=== PATIENT | female | born 1990 | race Caucasian/White ===

== ENCOUNTER 2017-09-13 08:25 | Emergency (ER) | payer OTHER ==
[~2017-09-13] VITALS: Ht 162.6 cm; Wt 110.0 kg
[2017-09-13 08:31] VITALS: BP 108/64
[2017-09-13] MEDS ORDERED: MAALOX/HYOSCYAMINE/LIDOCAINE 45 ML BTL ONE (09:24)
[2017-09-13] MEDS ORDERED: FLUO10CA7 PO (09:27)
[2017-09-13] MEDS ORDERED: MAALOX/HYOSCYAMINE/LIDOCAINE 45 ML BTL PO ONE (09:30)
[2017-09-13 09:38] LABS: BASOPHILS # (AUTO) 0.05 x10^3/uL (0-0.1); BASOPHILS % (AUTO) 1 % (0-1); EOSINOPHILS % (AUTO) 3 % (1-7); LYMPHOCYTES # (AUTO) 2.04 x10^3/uL (1-3.4); LYMPHOCYTES % (AUTO) 27 % (22-44); MD NO; MEAN CORPUSCULAR HEMOGLOBIN 29.9 pg (27.0-34.8); MEAN CORPUSCULAR HGB CONC 34.1 g/dL (32.4-35.8); MEAN CORPUSCULAR VOLUME 87.7 fL (80-100); MEAN PLATELET VOLUME 8.1 fL (7.4-10.4); MONOCYTES # (AUTO) 0.59 x10^3/uL (0.2-0.8); MONOCYTES % (AUTO) 8 % (2-9); NEUTROPHILS # (AUTO) 4.74 x10^3/uL (1.8-6.8); NEUTROPHILS % (AUTO) 62 % (42-75); PLATELET COUNT 343 x10^3/uL (130-400); RED BLOOD COUNT 4.84 x10^6/uL (3.82-5.3); RED CELL DISTRIBUTION WIDTH 12.5 % (9.6-15.2)
[2017-09-13 09:50] LABS: ALANINE AMINOTRANSFERASE 26 U/L (12-78); ALBUMIN 3.7 g/dL (3.4-5.0); ANION GAP 8 mmol/L (5-15); CALCIUM 8.9 mg/dL (8.5-10.1); CHLORIDE 107 mmol/L (98-107)
[2017-09-13 09:52] LABS: TROPONIN I < 0.015 ng/mL (0.000-0.045)
[2017-09-13 09:53] LABS: ALKALINE PHOSPHATASE 84 U/L (45-117); BILIRUBIN,TOTAL 0.3 mg/dL (0.2-1.0); CREATININE 0.59 mg/dL (0.55-1.02); TOTAL PROTEIN 7.5 g/dL (6.4-8.2)
== END 2017-09-13 10:35 | disposition home or self-care (01) ==
LOC: ED 10:01
DX: R07.89 Other chest pain (principal); K21.9 Gastro-esophageal reflux disease without esophagitis
CPT/HCPCS: 36415; 71045; 80053; 83690; 84484; 85025; 85379; 93005; 99285

== ENCOUNTER → 2017-11-12 | Outpatient (CLI) | payer OTHER ==
[~2017-11-12] MED LIST: FLUO10CA7 PO; FLUO20CA8 PO
== END | disposition home or self-care (01) ==
LOC: CFH 13:36
PROVIDERS: ATTEND Internal Medicine Cardiovascular Disease
DX: R07.9 Chest pain, unspecified (principal); Q21.0 Ventricular septal defect
CPT/HCPCS: 93306

== ENCOUNTER 2017-11-15 07:33 | Emergency (ER) | payer OTHER ==
[~2017-11-15] VITALS: Ht 162.6 cm; Wt 118.0 kg
[~2017-11-15 07:33] MED LIST changes: -FLUO20CA8 PO
[2017-11-15] MEDS ORDERED: FLUO20CA8 PO (07:58)
[2017-11-15] MEDS ORDERED: ASPIRIN 81 MG TABLET CHEW PO ONE (08:00)
[2017-11-15] MEDS ORDERED: ASPIRIN 81 MG TABLET CHEW ONE (08:13)
[2017-11-15 08:28] LABS: BASOPHILS # (AUTO) 0.03 x10^3/uL (0-0.1); BASOPHILS % (AUTO) 1 % (0-1); EOSINOPHILS # (AUTO) 0.17 x10^3/uL (0-0.4); EOSINOPHILS % (AUTO) 3 % (1-7); LYMPHOCYTES # (AUTO) 1.83 x10^3/uL (1-3.4); LYMPHOCYTES % (AUTO) 31 % (22-44); MD NO; MEAN CORPUSCULAR HEMOGLOBIN 29.7 pg (27.0-34.8); MEAN CORPUSCULAR HGB CONC 33.8 g/dL (32.4-35.8); MEAN CORPUSCULAR VOLUME 87.8 fL (80-100); MEAN PLATELET VOLUME 8.3 fL (7.4-10.4); MONOCYTES # (AUTO) 0.56 x10^3/uL (0.2-0.8); MONOCYTES % (AUTO) 10 % (2-9); NEUTROPHILS # (AUTO) 3.29 x10^3/uL (1.8-6.8); NEUTROPHILS % (AUTO) 56 % (42-75); PLATELET COUNT 315 x10^3/uL (130-400); RED BLOOD COUNT 4.76 x10^6/uL (3.82-5.3); RED CELL DISTRIBUTION WIDTH 12.8 % (9.6-15.2)
[2017-11-15 08:38] LABS: ALBUMIN 3.5 g/dL (3.4-5.0); ANION GAP 7 mmol/L (5-15); CALCIUM 8.9 mg/dL (8.5-10.1); CHLORIDE 107 mmol/L (98-107); CREATININE 0.57 mg/dL (0.55-1.02)
[2017-11-15 08:42] LABS: TROPONIN I < 0.015 ng/mL (0.000-0.045)
[2017-11-15 08:47] LABS: T4 (THYROXINE) 10.6 mcg/dL (4.8-13.9)
[2017-11-15 10:33] VITALS: BP 125/79
== END 2017-11-15 10:49 | disposition home or self-care (01) ==
LOC: ED 07:55
DX: R07.89 Other chest pain (principal); K21.9 Gastro-esophageal reflux disease without esophagitis
CPT/HCPCS: 36415; 80048; 82040; 83880; 84436; 84443; 84484; 85025; 93005; 99285

== ENCOUNTER 2017-12-02 21:47 | Emergency (ER) | payer OTHER ==
[~2017-12-02] VITALS: Ht 170.2 cm; Wt 138.0 kg
[~2017-12-02 21:47] MED LIST changes: +FLUO20CA8 PO
[2017-12-02 22:41] LABS: BASOPHILS # (AUTO) 0.05 x10^3/uL (0-0.1); BASOPHILS % (AUTO) 1 % (0-1); EOSINOPHILS # (AUTO) 0.24 x10^3/uL (0-0.4); EOSINOPHILS % (AUTO) 3 % (1-7); LYMPHOCYTES # (AUTO) 3.17 x10^3/uL (1-3.4); LYMPHOCYTES % (AUTO) 33 % (22-44); MD NO; MEAN CORPUSCULAR HEMOGLOBIN 29.8 pg (27.0-34.8); MEAN CORPUSCULAR HGB CONC 33.8 g/dL (32.4-35.8); MEAN CORPUSCULAR VOLUME 88.2 fL (80-100); MEAN PLATELET VOLUME 8.1 fL (7.4-10.4); MONOCYTES # (AUTO) 0.72 x10^3/uL (0.2-0.8); MONOCYTES % (AUTO) 7 % (2-9); NEUTROPHILS # (AUTO) 5.49 x10^3/uL (1.8-6.8); NEUTROPHILS % (AUTO) 57 % (42-75); PLATELET COUNT 352 x10^3/uL (130-400); RED CELL DISTRIBUTION WIDTH 13.2 % (9.6-15.2)
[2017-12-02 22:52] LABS: ALBUMIN 3.6 g/dL (3.4-5.0); ANION GAP 10 mmol/L (5-15); CALCIUM 8.7 mg/dL (8.5-10.1); CHLORIDE 106 mmol/L (98-107); CREATININE 0.57 mg/dL (0.55-1.02)
[2017-12-02 23:13] VITALS: BP 111/69
== END 2017-12-03 00:12 | disposition home or self-care (01) ==
LOC: ED 23:59
DX: R20.8 Other disturbances of skin sensation (principal); R51 Headache; K21.9 Gastro-esophageal reflux disease without esophagitis
CPT/HCPCS: 36415; 80048; 81025; 82040; 85025; 93005; 99285

== ENCOUNTER 2018-02-06 21:20 | Emergency (ER) | payer OTHER ==
[~2018-02-06] VITALS: Ht 162.6 cm; Wt 121.3 kg
[2018-02-06 21:24] VITALS: BP 130/90
[2018-02-06] MEDS ORDERED: KETOROLAC 30 MG/1 ML ONE (21:46)
[2018-02-06] MEDS ORDERED: METHOCARBAMOL 750 MG TABLET ONE (21:46)
[2018-02-06 22:00] LABS: HCG UR SG 1.025 (1.003-1.030)
[2018-02-06] MEDS ORDERED: METHOCARBAMOL 750 MG TABLET PO ONE (22:00)
[2018-02-06] MEDS ORDERED: KETOROLAC 30 MG/1 ML IM ONE (22:00)
--- NOTE | 2018-02-06 23:22 | NUR ---
DC EDUCATION PROVIDED, PT DEMONSTRATES UNDERSTANDING. PT AMBULTED STEADILY TO DC WITH RN AND FATHER. FATHER TO TRANSPORT PT HOME
== END 2018-02-06 23:24 | disposition home or self-care (01) ==
LOC: ED 22:13
DX: M54.5 Low back pain (principal); K21.9 Gastro-esophageal reflux disease without esophagitis
CPT/HCPCS: 81025; 96372; 99283; J1885

== ENCOUNTER 2018-04-29 10:26 | Emergency (ER) | payer OTHER ==
[~2018-04-29] VITALS: Ht 162.6 cm; Wt 122.0 kg
--- NOTE | 2018-04-29 11:20 | NUR ---
REPORTS "WIERD SENSATION LAST OCT" SEEN HERE AND DX WITH COMPLEX MIGRAINE AFTER LABS/CT. PRESENTS SXS FROM November -TINGLING OF L FACE PAIN/L BAPTISM/LEFT TEETH. NO DENTAL ABNORMALITIES. APPEARS WELL. AMBULATORY W/OUT DEFICITS. NO FOCAL DEFICITS. PAIN "JUST IRRIATATING, NOT ENOUGH FOR PAIN MEDICINE. PROVIDER TO BEDSIDE. TO DC SHORTLY
[2018-04-29] MEDS ORDERED: ASPI-496 PO (11:48)
--- NOTE | 2018-04-29 11:50 | NUR ---
WITH INTAKE PATIENT REPORTS SHE HAS A ATRIAL SEPTAL DEFECT WHICH REQUIRES SURGERY SOON. ON ASA-PROVIDER MADE AWARE
--- NOTE | 2018-04-29 12:10 | NUR ---
SUPERVISOR CAB DISCUSSED ASD POSSIBLY CONTRIBUTING TO SXS. CONFIDENT SXS ON [place] NOT STROKE LIKE. SUPERVISOR CAB AGREES. TO PROCEED W/ D/C. PATIENT UPDATED.
[2018-04-29 12:40] VITALS: BP 116/64
== END 2018-04-29 13:00 | disposition home or self-care (01) ==
LOC: ED 11:52
DX: R51 Headache (principal)
CPT/HCPCS: 99281

== ENCOUNTER 2018-09-02 08:45 | Outpatient (CLI) | payer OTHER | END 2018-09-02 23:59 | disposition home or self-care (01) | LOC: CVU 08:45 | PROVIDERS: ATTEND Internal Medicine Cardiovascular Disease | DX: I34.0 Nonrheumatic mitral (valve) insufficiency (principal); Q21.0 Ventricular septal defect | CPT/HCPCS: 0399T; 93306 ==

== ENCOUNTER 2019-08-12 18:09 | Emergency (ER) | payer OTHER ==
[~2019-08-12] VITALS: Ht 162.6 cm; Wt 135.0 kg
[~2019-08-12 18:09] MED LIST changes: +ASPI-496 PO; +FLUO10CA14 PO; -FLUO10CA7 PO; +FLUO20CA23 PO; -FLUO20CA8 PO
[2019-08-12] MEDS ORDERED: METOCLOPRAMIDE 5 MG/ML, 2ML IVPush ONE (18:30)
[2019-08-12] MEDS ORDERED: DIPHENHYDRAMINE 50 MG/ML, 1ML IVPush ONE (18:30)
[2019-08-12] MEDS ORDERED: SODIUM CHLORIDE 0.9% 1,000ML IVBOLUS ONE (18:30)
[2019-08-12] MEDS ORDERED: KETOROLAC 30 MG/1 ML IVPush ONE (18:30)
[2019-08-12] MEDS ORDERED: SODIUM CHLORIDE FLUSH 10ML SYR IVF ONE (18:30)
[2019-08-12] MEDS ORDERED: METOCLOPRAMIDE 5 MG/ML, 2ML ONE (18:33)
[2019-08-12] MEDS ORDERED: KETOROLAC 30 MG/1 ML ONE (18:33)
[2019-08-12] MEDS ORDERED: DIPHENHYDRAMINE 50 MG/ML, 1ML ONE (18:34)
[2019-08-12 19:48] VITALS: BP 114/63
== END 2019-08-12 20:35 | disposition home or self-care (01) ==
LOC: ED 18:39
DX: R51 Headache (principal); R11.0 Nausea; J34.89 Other specified disorders of nose and nasal sinuses; K21.9 Gastro-esophageal reflux disease without esophagitis
CPT/HCPCS: 96374; 96375; 99284; J1200; J1885; J2765; J7030

== ENCOUNTER 2019-08-17 14:55 | Emergency (ER) | payer OTHER ==
[~2019-08-17] VITALS: Ht 162.6 cm; Wt 133.3 kg
--- NOTE | 2019-08-17 15:39 | NUR ---
PT C/O HEADACHE THAT HAS BEEN ONGOING FOR APPROX A MONTH. STATES THAT THE HEADACHE IS PRESENT EVERY DAY. SLEEPING HELPS. NO HEADACHE OR VERY LITTLE ON WAKING IN THE MORNINGS, HEADACHE COMES AND GETS WORSE THROUGHOUT THE DAY EVERY DAY, SOME DAYS WORSE THAN OTHERS. NO RESPONSE TO MEDICATION OR OTHER PATTERNS NOTICED. PT C/O MILD TRANSIENT NAUSEA THROUGHOUT. NO DIZZINESS OR VISION CHANGES. CALL LIGHT IN REACH.
[2019-08-17] MEDS ORDERED: DIPHENHYDRAMINE 25 MG CAPSULE PO ONE (16:00)
[2019-08-17] MEDS ORDERED: KETOROLAC 30 MG/1 ML IM ONE (16:00)
[2019-08-17] MEDS ORDERED: PROCHLORPERAZINE 5 MG/ML, 2ML IM ONE (16:00)
[2019-08-17] MEDS ORDERED: DIPHENHYDRAMINE 25 MG CAPSULE ONE (16:06)
[2019-08-17] MEDS ORDERED: PROCHLORPERAZINE 5 MG/ML, 2ML ONE (16:06)
[2019-08-17] MEDS ORDERED: KETOROLAC 30 MG/1 ML ONE (16:06)
[2019-08-17] MEDS ORDERED: DEXAMETHASONE 4 MG/ML, 1ML ONE (16:57)
[2019-08-17] MEDS ORDERED: DEXAMETHASONE 4 MG/ML, 1ML IM ONE (17:00)
[2019-08-17 17:15] VITALS: BP 134/66
== END 2019-08-17 17:17 | disposition home or self-care (01) ==
LOC: ED 17:00
DX: R51 Headache (principal); R11.2 Nausea with vomiting, unspecified; K21.9 Gastro-esophageal reflux disease without esophagitis
CPT/HCPCS: 96372; 99284; J0780; J1885; Q0163

== ENCOUNTER → 2019-11-14 | Outpatient (CLI) | payer OTHER | END | disposition home or self-care (01) | LOC: CVU 08:55 | PROVIDERS: ATTEND Physician Assistant Medical | DX: I08.1 Rheumatic disorders of both mitral and tricuspid valves (principal); R07.9 Chest pain, unspecified; Q21.0 Ventricular septal defect | CPT/HCPCS: 93306 ==